=== PATIENT | male | born 1990 | race Caucasian/White ===

== ENCOUNTER 2018-08-09 21:40 | Emergency (ER) | payer OTHER ==
[2018-08-09] MEDS ORDERED: NS 1,000 ML IV ONE ×2 (22:10→22:38)
[2018-08-09 22:20] LABS: PLATELET COUNT 272 10^3/uL (150-400)
--- NOTE | 2018-08-09 23:23 | EDPHY ---
H & P Stated Complaint: SYNCOPAL EPISODE,LAC TO HEAD, +LOC, LAC TO HEAD - Personal History Current Tetanus Diphtheria and Acellular Pertussis (TDAP): Yes - Medical/Surgical History Hx Asthma: No Hx Chronic Respiratory Disease: No Hx Diabetes: Yes Hx Cardiac Disease: No Hx Renal Disease: No Hx Cirrhosis: No Hx Alcoholism: No Hx HIV/AIDS: No Hx Splenectomy or Spleen Trauma: No Other PMH: DM I - Social History Smoking Status: Current some day smoker Time Seen by Provider: 08/09/18 21:52 HPI/ROS: Chief complaint: Syncope History of present illness: This is a 28-year-old male who presents with his brother's after sustaining a syncopal episode just prior to arrival. Patient just arrived back to [place] to visit his brother's from [place]. Patient states prior to the syncopal episode he check a large hip from a Bong the contained a combination of tobacco and marijuana. He passed out and struck his head against the ground sustaining a laceration to the scalp. His brother's witness this. He quickly regained consciousness. Since then he has felt well. No headache, no report of pain or trauma to other parts of the body including the neck. No paresthesias, no weakness or paralysis, no bowel or bladder dysfunction. There was no reported seizure activity from his brother's who were with him. His tetanus is up-to-date. Review of systems: A 10 point review of systems was obtained and other than described above was negative (Elton Cervantes) - Physical Exam Exam: General Appearance: Alert, nontoxic. Eyes: Pupils equal and round no pallor or injection. EOM intact. ENT, Mouth: Mucous membranes moist. No hemotympanum, no kaye sign, no raccoon eyes. Respiratory: There are no retractions, lungs are clear to auscultation. Cardiovascular: Tachycardic with regular rhythm. Gastrointestinal: Abdomen is soft and non tender, no masses, bowel sounds normal. Neurological: Alert and oriented x4. Cranial nerves 2-12 grossly intact. Strength and sensation intact and symmetrical. Ambulating without difficulty. Skin: Patient is a 2 cm laceration to the right parietal scalp. Musculoskeletal: The head is nontender. Neck is supple non tender. Spine is nontender to palpation along its entire length. Chest wall intact palpation. Extremities are symmetrical, full range of motion. Psychiatric: Patient is oriented X 3, there is no agitation. (Elton Cervantes) Constitutional: Initial Vital Signs Temperature (C) 36.4 C 08/09/18 21:52 Heart Rate 134 H 08/09/18 21:52 Respiratory Rate 16 08/09/18 21:52 Blood Pressure 156/84 H 08/09/18 21:52 O2 Sat (%) 98 08/09/18 21:52 O2 Delivery Mode Room Air Allergies/Adverse Reactions: cephalexin [From Keflex] Allergy (Verified 08/09/18 21:52) Sulfa (Sulfonamide Antibiotics) Allergy (Verified 08/09/18 21:52) Home Medications: Medication Instructions Recorded Humalog 08/09/18 Lantus 08/09/18 Medical Decision Making - Diagnostics EKG Interpretation: EKG: Complete interpretation has been separately recorded in the [facility] archive. Summary impression: Sinus tachycardia (Angie Guidry) Procedures: Procedure: Laceration repair. Verbal consent was obtained from the patient. The 2 cm laceration on the scalp was irrigated, draped and explored to its base with a gloved finger. There were no deep structures involved. No tendon injury was identified. The wound was repaired with 5 jessica. The wound repair was simple. The procedure was performed by myself. (Elton Cervantes) ED Course/Re-evaluation: Patient is discussed with my secondary supervising physician Dr. Angie Guidry. Patient presents after a syncopal episode that occurred after taking a large hit off a Bong that contained tobacco and marijuana. On my evaluation patient states he is feeling well. EKG, CBC and chemistry unremarkable. He has a scalp laceration that has been cleaned and repaired. No evidence of significant trauma beyond laceration by physical exam. I do believe the syncopal episode was secondary to the use of the bong. I do not believe he has sustained a serious head injury,I do not believe imaging studies are warranted. He has been IV hydrated with improvement in symptoms, he remains mildly tachycardic. He has been observed in the emergency room for 2.5 hours and remains well appearing. He is discharged home. Home care is discussed. He is follow up with a primary care doctor for recheck. Return precautions are given. The patient voiced understanding and agreement with plan. (Elton Cervantes) Differential Diagnosis: Included but not limited to syncope secondary to drug use, vasovagal, hypovolemic state including and dehydration and anemia, electrolyte disturbances , cardiac dysrhythmia as well as superficial trauma, bony fracture, intracranial injury unlikely (Elton Cervantes) - Data Points Laboratory Results: Laboratory Results 08/09/18 22:05 08/09/18 22:05 08/09/18 08/09/18 08/09/18 22:08 22:05 22:05 WBC 11.27 10^3/uL H 10^3/uL (3.80-9.50) RBC 5.34 10^6/uL 10^6/uL (4.40-6.38) Hgb 16.3 g/dL g/dL (13.7-17.5) POC Hgb 16.3 gm/dL gm/dL (13.7-17.5) Hct 46.7 % % (40.0-51.0) POC Hct 48 % % (40-51) MCV 87.5 fL fL (81.5-99.8) MCH 30.5 pg pg (27.9-34.1) MCHC 34.9 g/dL g/dL (32.4-36.7) RDW 11.9 % % (11.5-15.2) Plt Count 272 10^3/uL 10^3/uL (150-400) MPV 9.8 fL fL (8.7-11.7) Neut % (Auto) 44.4 % % (39.3-74.2) Lymph % (Auto) 45.2 % H % (15.0-45.0) [place] % (Auto) 8.4 % % (4.5-13.0) Eos % (Auto) 0.8 % % (0.6-7.6) Baso % (Auto) 0.4 % % (0.3-1.7) Nucleat RBC Rel Count 0.0 % % (0.0-0.2) Absolute Neuts (auto) 5.00 10^3/uL 10^3/uL (1.70-6.50) Absolute Lymphs (auto) 5.09 10^3/uL H 10^3/uL (1.00-3.00) Absolute Monos (auto) 0.95 10^3/uL H 10^3/uL (0.30-0.80) Absolute Eos (auto) 0.09 10^3/uL 10^3/uL (0.03-0.40) Absolute Basos (auto) 0.05 10^3/uL 10^3/uL (0.02-0.10) Absolute Nucleated RBC 0.00 10^3/uL 10^3/uL (0-0.01) Immature Gran % 0.8 % % (0.0-1.1) Immature Gran # 0.09 10^3/uL 10^3/uL (0.00-0.10) RBC/WBC/PLT Morphology TNP Platelet Estimate TNP POC Sodium 141 mEq/L mEq/L (135-145) Sodium 137 mEq/L mEq/L (135-145) POC Potassium 3.1 mEq/L L mEq/L (3.3-5.0) Potassium 3.6 mEq/L mEq/L (3.5-5.2) POC Chloride 101 mEq/L mEq/L (97-110) Chloride 102 mEq/L mEq/L (97-110) Carbon Dioxide 22 mEq/l mEq/l (22-31) Anion Gap 13 mEq/L mEq/L (6-14) POC BUN 16 mg/dL mg/dL (7-23) BUN 17 mg/dL mg/dL (7-23) Creatinine 1.3 mg/dL mg/dL (0.7-1.3) POC Creatinine 1.5 mg/dL H mg/dL (0.7-1.3) Estimated GFR > 60 Glucose 160 mg/dL H mg/dL (70-100) POC Glucose 169 mg/dL H mg/dL (70-100) Calcium 9.3 mg/dL mg/dL (8.5-10.4) Medications Given: Discontinued Medications Sodium Chloride (Ns) 1,000 mls @ 0 mls/hr IV EDNOW ONE; Wide Open PRN Reason: Protocol Stop: 08/09/18 22:11 Last Admin: 08/09/18 22:10 Dose: 1,000 mls Sodium Chloride (Ns) 1,000 mls @ 0 mls/hr IV EDNOW ONE; Wide Open PRN Reason: Protocol Stop: 08/09/18 22:39 Last Admin: 08/09/18 22:38 Dose: 1,000 mls Point of Care Test Results: Chemistry 08/09/18 22:08 POC Sodium 141 mEq/L mEq/L (135-145) POC Potassium 3.1 mEq/L L mEq/L (3.3-5.0) POC Chloride 101 mEq/L mEq/L (97-110) POC BUN 16 mg/dL mg/dL (7-23) POC Creatinine 1.5 mg/dL H mg/dL (0.7-1.3) POC Glucose 169 mg/dL H mg/dL (70-100) ISTAT H&H 08/09/18 22:08 POC Hgb 16.3 gm/dL gm/dL (13.7-17.5) POC Hct 48 % % (40-51) Departure - Departure Disposition: Home, Routine, Self-Care Clinical Impression: Syncope Qualifiers: Syncope type: unspecified Qualified Code(s): R55 - Syncope and collapse Head injury Qualifiers: Encounter type: initial encounter Qualified Code(s): S09.90XA - Unspecified injury of head, initial encounter Scalp laceration Qualifiers: Encounter type: initial encounter Qualified Code(s): S01.01XA - Laceration without foreign body of scalp, initial encounter Condition: Good Instructions: Syncope (ED), Head Injury (ED), Staple Care (ED), Acute Wounds ( ED) Additional Instructions: Follow-up with a primary care doctor next week for recheck Jessica are to be removed in 7 days Avoid the use of alcohol, marijuana and tobacco at this time If symptoms worsen or new symptoms develop return to the emergency department for recheck Referrals: NONE *PRIMARY CARE P,. [Primary Care Provider] - As per Instructions [facility],. [Clinic] - As per Instructions
[2018-08-09 23:59] VITALS: BP 134/78
--- NOTE | 2018-08-10 05:24 | CPEKG ---
Test Reason : OPEN Blood Pressure : / mmHG Vent. Rate : 126 BPM Atrial Rate : 128 BPM P-R Int : 117 ms QRS Dur : 098 ms QT Int : 407 ms P-R-T Axes : 067 054 263 degrees QTc Int : 590 ms Sinus tachycardia Prolonged QT interval Confirmed by Angie Guidry ([id number]) on 08/10/2018 5:24:15 AM Referred By: Confirmed By:Angie Guidry
== END 2018-08-10 00:06 | disposition home or self-care (01) ==
PROC: 0HQ0XZZ Repair Scalp Skin, External Approach (ICD-10-PCS; principal; 2018-08-09)
DX: S01.01XA Laceration without foreign body of scalp, initial encounter (principal); R55 Syncope and collapse; E10.9 Type 1 diabetes mellitus without complications; F17.200 Nicotine dependence, unspecified, uncomplicated; W19.XXXA Unspecified fall, initial encounter; Y92.9 Unspecified place or not applicable; Y93.9 Activity, unspecified; Y99.9 Unspecified external cause status; Z88.2 Allergy status to sulfonamides
CPT/HCPCS: 82435-PO; 82565-PO; 82947-PO; 84132-PO; 84295-PO; 84520-PO; 85014-PO